=== PATIENT | male | born 2000 ===

== ENCOUNTER 2021-10-04 16:31 | Emergency (ER) | payer OTHER ==
[~2021-10-04] VITALS: Ht 152.4 cm; Wt 74.4 kg
[2021-10-04] MEDS ORDERED: LEVSIN/SL0.125 MG SL (20:16)
[2021-10-04] MEDS ORDERED: PEPCID AC20 MG PO (20:16)
== END 2021-10-04 20:23 | disposition home or self-care (01) ==
LOC: ER 16:31
DX: R10.13 Epigastric pain (principal)

== ENCOUNTER 2022-10-20 21:09 | Emergency (ER) | payer OTHER ==
[~2022-10-20] VITALS: Ht 165.1 cm; Wt 79.8 kg
[~2022-10-20 21:09] MED LIST: LEVSIN/SL0.125 MG SL; PEPCID AC20 MG PO
== END 2022-10-20 22:01 | disposition home or self-care (01) ==
LOC: ER 21:09
DX: J06.9 Acute upper respiratory infection, unspecified (principal); K59.01 Slow transit constipation